=== PATIENT | female | born 1985 | race Caucasian/White ===

== ENCOUNTER 2017-09-20 11:05 | Day surgery (SDC) | payer OTHER ==
[~2017-09-20] VITALS: Ht 160 cm; Wt 66.8 kg
[~2017-09-20 11:05] MED LIST: CEFOTETAN 2 GM ONE; DEXAMETHASONE 4 MG/ML, 1ML ONE; KETOROLAC 30 MG/1 ML ONE; ONDANSETRON 2MG/ML, 2ML ONE; PROPOFOL 10 MG/ML, 20ML ONE; ROCURONIUM 10 MG/ML,10ML ONE; SUCCINYLCHOLINE 20 MG/ML, 10ML ONE
[2017-09-20] MEDS ORDERED: LACTATED RINGERS 1,000 ML IV SCH ×2 (11:24→15:58)
[2017-09-20] MEDS ORDERED: LIDOCAINE 1%, 2ML SQ PRN (11:30)
[2017-09-20] MEDS ORDERED: SCOPOLAMINE PATCH, 1.5MG PATCH.TD72 TD ONE ×2 (11:30→11:42)
[2017-09-20] MEDS ORDERED: ACETAMINOPHEN 500 MG TABLET PO ONE (11:30)
[2017-09-20] MEDS ORDERED: PLEASE ENTER ALLERGIES MC SCH (11:30)
[2017-09-20] MEDS ORDERED: LIDOCAINE-MPF 1%, 2ML ONE (11:41)
[2017-09-20] MEDS ORDERED: ACETAMINOPHEN 500 MG TABLET ONE (11:41)
[2017-09-20 11:43] VITALS: BP 124/85
[2017-09-20] MEDS ORDERED: NONE PER PT (11:43)
[2017-09-20] MEDS ORDERED: PLEASE ENTER HEIGHT AND WEIGHT MC SCH (12:00)
[2017-09-20] MEDS ORDERED: THROMBIN 5,000 UNIT VIAL TP ONE (13:04)
[2017-09-20] MEDS ORDERED: FLUORESCEIN SODIUM 500 MG/5 ML ONE (13:05)
[2017-09-20] MEDS ORDERED: EPINEPHRINE 1 MG/ML, 1ML ONE (13:05)
[2017-09-20] MEDS ORDERED: NEOMY/POLYMYXIN B GU IRR. 1 ML IRRIG ONE (13:05)
[2017-09-20] MEDS ORDERED: FENTANYL PF 100 MCG/2ML ONE (13:24)
[2017-09-20] MEDS ORDERED: MIDAZOLAM 1 MG/ML, 2ML ONE (13:24)
[2017-09-20] MEDS: BUPIVACAINE/PF 0.25% ONE ×2 (14:04→14:05)
[2017-09-20] MEDS ORDERED: INTERCEED 3 X 4 INCH DRESSING ONE (14:48)
[2017-09-20] MEDS ORDERED: PROMETHAZINE 25 MG/ML, 1ML IV PRN (15:00)
[2017-09-20] MEDS ORDERED: HYDROmorphone 1 MG/ML, 1ML IV PRN (15:00)
[2017-09-20] MEDS ORDERED: MIDAZOLAM 1 MG/ML, 2ML IV PRN (15:00)
[2017-09-20] MEDS ORDERED: HYDROcodone/APAP 7.5-325MG/15ML UDC PO PRN (15:00)
[2017-09-20] MEDS ORDERED: hydrALAzine 20 MG/ML, 1ML IV PRN (15:00)
[2017-09-20] MEDS ORDERED: ONDANSETRON 2MG/ML, 2ML IVPush PRN ×2 (15:00→16:00)
[2017-09-20] MEDS ORDERED: METOPROLOL 1 MG/ML, 5ML IV PRN (15:00)
[2017-09-20] MEDS ORDERED: EPHEDRINE 50 MG/ML, 1ML IVPush PRN (15:00)
[2017-09-20] MEDS ORDERED: PROMETHAZINE 12.5 MG SUPP PR PRN (15:00)
[2017-09-20] MEDS ORDERED: OXYcodone 5 MG/5 ML ORAL.SOL UDC PO PRN (15:00)
[2017-09-20] MEDS ORDERED: ALBUTEROL SULFATE 2.5 MG/3 ML NPPB PRN (15:00)
[2017-09-20] MEDS ORDERED: LABETALOL 5MG/ML, 20ML IV PRN (15:00)
[2017-09-20] MEDS ORDERED: FENTANYL PF 100 MCG/2ML IV PRN (15:00)
[2017-09-20] MEDS ORDERED: DIAZEPAM 5 MG/ML, 2ML IVPush PRN (15:00)
[2017-09-20] MEDS: MEPERIDINE/PF 25MG/0.5ML IVPush PRN ×2 (15:56→16:05)
[2017-09-20] MEDS ORDERED: MEPERIDINE/PF 50 MG/ML ONE (15:57)
[2017-09-20] MEDS ORDERED: OXYcodone 5 MG/5 ML ORAL.SOL UDC ONE (15:57)
[2017-09-20] MEDS ORDERED: PROMETHAZINE 25 MG SUPP PR ONE (16:00)
[2017-09-20] MEDS ORDERED: HYDROcodone/APAP 5/325 TABLET PO PRN (16:00)
[2017-09-20] MEDS ORDERED: IBUPROFEN 600 MG TABLET PO PRN (16:00)
== END 2017-09-20 18:50 | disposition home or self-care (01) ==
LOC: OUT 11:05
PROVIDERS: ATTEND Obstetrics & Gynecology Female Pelvic Medicine and Reconstructive Surgery
DX: N92.0 Excessive and frequent menstruation with regular cycle (principal); N39.3 Stress incontinence (female) (male); N94.6 Dysmenorrhea, unspecified; N80.1 Endometriosis of ovary; N73.6 Female pelvic peritoneal adhesions (postinfective); N83.201 Unspecified ovarian cyst, right side
CPT/HCPCS: 57288; 58571; 81025; 88307; C1771; J0171; J0330; J1100; J1885; J2175; J2250; J2405; J2704; J3010; J3490; J7120; S0074